=== PATIENT | male | born 1955 | race Caucasian/White ===

== ENCOUNTER → 2021-08-16 | Outpatient (CLI) | payer MEDICARE ==
--- NOTE | 2021-08-16 11:50 | Diagnostic Imaging Report ---
Indication: Hypertension. Chronic renal disease. FINDINGS: Right kidney measures 11.2 x 5.4 x 6 cm. Left kidney measures 12.2 x 6 x 5.5 cm. Detail is limited due to body habitus. No hydronephrosis or masses are seen. Doppler sampling shows a peak velocity on the right of 89 cm/s with renal artery to aortic ratio of 0.84. Left kidney shows peak velocity of 211 cm/s with renal artery to aortic ratio of 2.0. The bladder shows prevoid volume of 430 mL with post void volume of 340 mL's. The prostate does appear enlarged. IMPRESSION: 1. Limited exam due to body habitus. No Doppler findings are seen that would indicate hemodynamic stenosis. 2. There is considerable urinary retention post void 340 mL. Dictated by: Dictated on workstation # [id number]
== END ==
LOC: RAD 09:45
PROVIDERS: ATTEND Internal Medicine Nephrology
DX: I12.9 Hypertensive chronic kidney disease with stage 1 through stage 4 chronic kidney disease, or unspecified chronic kidney disease (principal); N18.32 Chronic kidney disease, stage 3b; D63.1 Anemia in chronic kidney disease; E83.9 Disorder of mineral metabolism, unspecified
CPT/HCPCS: 76770; 93975